=== PATIENT | male | born 1985 | race Caucasian/White ===

== ENCOUNTER 2024-01-01 03:06 | Emergency (ER) | payer MEDICAID, OTHER ==
[~2024-01-01] VITALS: Ht 157.5 cm; Wt 54.5 kg
[2024-01-01 03:44] LABS: HEMATOCRIT 40.2 % (42.0-52.0); HEMOGLOBIN 13.7 g/dl (13.5-17.5); MEAN CORPUSCULAR HEMOGLOBIN 29.3 pg (27.0-33.0); MEAN CORPUSCULAR HGB CONC 34.1 g/dl (32.0-36.5); MEAN CORPUSCULAR VOLUME 85.9 fl (80.0-96.0); PLATELET COUNT, AUTOMATED 257 10^3/uL (150-450); RED BLOOD COUNT 4.68 10^6/uL (4.30-6.10); WHITE BLOOD COUNT 5.7 10^3/uL (4.0-10.0)
[2024-01-01 04:03] LABS: BARBITURATES URINE NEGATIVE (NEGATIVE); COCAINE METABOLITE URINE NEGATIVE (NEGATIVE)
[2024-01-01 04:04] LABS: BENZODIAZEPINES URINE NEGATIVE (NEGATIVE); METHADONE URINE NEGATIVE (NEGATIVE); OPIATES URINE NEGATIVE (NEGATIVE); PHENCYCLIDINE URINE NEGATIVE (NEGATIVE)
[2024-01-01 04:05] LABS: AMPHETAMINES LEVEL URINE POSITIVE (NEGATIVE); CANNABINOIDS URINE POSITIVE (NEGATIVE); ETHYL ALCOHOL (ETHANOL) < 0.003 % (0.000-0.010)
[2024-01-01 04:07] LABS: ALBUMIN 4.4 G/DL (3.2-5.2); ALKALINE PHOSPHATASE 48 U/L (46-116); ALT/SGPT 14 U/L (7.0-40); AST/SGOT 17 U/L (<34); BILIRUBIN,DIRECT 0.2 MG/DL (<0.4); BILIRUBIN,TOTAL 0.5 MG/DL (0.3-1.2); BLOOD UREA NITROGEN 18 MG/DL (9-23); CALCIUM LEVEL 9.2 MG/DL (8.5-10.1); CARBON DIOXIDE LEVEL 26 MMOL/L (20-31); CHLORIDE LEVEL 105 MMOL/L (98-107); CREATININE FOR GFR 1.09 MG/DL (0.70-1.30); GLOMERULAR FILTRATION RATE > 60.0 (>60); GLUCOSE, FASTING 94 MG/DL (60-100); POTASSIUM SERUM 3.8 MMOL/L (3.5-5.1); SALICYLATE LEVEL < 3.0 MG/DL (<30); SODIUM LEVEL 140 MMOL/L (136-145); TOTAL PROTEIN 6.9 G/DL (5.7-8.2)
[2024-01-01 04:09] LABS: THYROID STIMULATING HORMONE 3.169 uIU/ML (0.55-4.78)
[2024-01-01 08:21] VITALS: BP 142/79; TEMP 97.4; O2SAT 96
== END 2024-01-01 08:27 | disposition home or self-care (01) ==
LOC: M ED 03:06
DX: F43.0 Acute stress reaction (principal); F20.9 Schizophrenia, unspecified; F17.290 Nicotine dependence, other tobacco product, uncomplicated

== ENCOUNTER 2024-01-30 01:17 | Emergency (ER) | payer OTHER ==
[~2024-01-30] VITALS: Ht 172.7 cm; Wt 61.6 kg
[2024-01-30 01:59] LABS: HEMATOCRIT 40.5 % (42.0-52.0); HEMOGLOBIN 14.1 g/dl (13.5-17.5); MEAN CORPUSCULAR HEMOGLOBIN 29.6 pg (27.0-33.0); MEAN CORPUSCULAR HGB CONC 34.8 g/dl (32.0-36.5); MEAN CORPUSCULAR VOLUME 85.1 fl (80.0-96.0); PLATELET COUNT, AUTOMATED 273 10^3/uL (150-450); RED BLOOD COUNT 4.76 10^6/uL (4.30-6.10); WHITE BLOOD COUNT 6.1 10^3/uL (4.0-10.0)
[2024-01-30 02:23] LABS: ETHYL ALCOHOL (ETHANOL) 0.006 % (0.000-0.010)
[2024-01-30 02:25] LABS: ALBUMIN 4.5 G/DL (3.2-5.2); ALKALINE PHOSPHATASE 55 U/L (46-116); ALT/SGPT 32 U/L (7.0-40); AST/SGOT 45 U/L (<34); BILIRUBIN,DIRECT 0.2 MG/DL (<0.4); BILIRUBIN,TOTAL 0.5 MG/DL (0.3-1.2); BLOOD UREA NITROGEN 30 MG/DL (9-23); CALCIUM LEVEL 9.3 MG/DL (8.5-10.1); CARBON DIOXIDE LEVEL 24 MMOL/L (20-31); CHLORIDE LEVEL 106 MMOL/L (98-107); CREATININE FOR GFR 1.09 MG/DL (0.70-1.30); GLOMERULAR FILTRATION RATE > 60.0 (>60); GLUCOSE, FASTING 88 MG/DL (60-100); POTASSIUM SERUM 4.4 MMOL/L (3.5-5.1); SALICYLATE LEVEL < 3.0 MG/DL (<30); SODIUM LEVEL 140 MMOL/L (136-145); TOTAL PROTEIN 7.1 G/DL (5.7-8.2)
[2024-01-30 02:27] LABS: THYROID STIMULATING HORMONE 0.705 uIU/ML (0.55-4.78)
[2024-01-30 04:32] LABS: BARBITURATES URINE NEGATIVE (NEGATIVE); BENZODIAZEPINES URINE NEGATIVE (NEGATIVE); COCAINE METABOLITE URINE NEGATIVE (NEGATIVE); METHADONE URINE NEGATIVE (NEGATIVE); OPIATES URINE NEGATIVE (NEGATIVE); PHENCYCLIDINE URINE NEGATIVE (NEGATIVE)
[2024-01-30 04:49] LABS: AMPHETAMINES LEVEL URINE POSITIVE (NEGATIVE); CANNABINOIDS URINE POSITIVE (NEGATIVE)
[2024-01-30] MEDS ORDERED: MED REC IN PROGRESS XX SCH (07:45)
[2024-01-30] MEDS ORDERED: HOME MED LIST COMPLETE! XX SCH (08:40)
[2024-01-30 10:55] VITALS: BP 106/59; TEMP 99; O2SAT 99
== END 2024-01-30 11:25 | disposition home or self-care (01) ==
LOC: M ED 01:17
DX: F43.20 Adjustment disorder, unspecified (principal); F17.200 Nicotine dependence, unspecified, uncomplicated; F31.9 Bipolar disorder, unspecified; Z11.52 Encounter for screening for COVID-19

== ENCOUNTER 2024-03-10 19:33 | Emergency (ER) | payer OTHER ==
[2024-03-10 19:41] VITALS: TEMP 97.8
[2024-03-10 20:15] VITALS: BP 131/87; O2SAT 100
[2024-03-10] MEDS ORDERED: ISOVUE-370 76% 100ML VIAL As Ordered ONE (20:24)
[2024-03-10 20:26] LABS: BASO % 0.6 % (0.0-1.0); EOS # 0.1 10^3/uL (0.0-0.5); EOS % 1.3 % (0.0-3.0); HEMATOCRIT 36.8 % (42.0-52.0); LYMPH % 28.1 % (24.0-44.0); MEAN CORPUSCULAR HEMOGLOBIN 30.3 pg (27.0-33.0); MEAN CORPUSCULAR HGB CONC 35.3 g/dl (32.0-36.5); MEAN CORPUSCULAR VOLUME 85.8 fl (80.0-96.0); MONO # 0.6 10^3/uL (0.0-0.8); NEUTROPHILS # 4.4 10^3/uL (1.5-8.5); NEUTROPHILS % 61.9 % (36.0-66.0); PLATELET COUNT, AUTOMATED 218 10^3/uL (150-450); RED BLOOD COUNT 4.29 10^6/uL (4.30-6.10); WHITE BLOOD COUNT 7.2 10^3/uL (4.0-10.0)
[2024-03-10 20:49] LABS: BLOOD UREA NITROGEN 20 MG/DL (9-23); CALCIUM LEVEL 9.1 MG/DL (8.5-10.1); CARBON DIOXIDE LEVEL 29 MMOL/L (20-31); CHLORIDE LEVEL 107 MMOL/L (98-107); CREATININE FOR GFR 0.92 MG/DL (0.70-1.30); GLOMERULAR FILTRATION RATE > 60.0 (>60); GLUCOSE, FASTING 86 MG/DL (60-100); POTASSIUM SERUM 4.3 MMOL/L (3.5-5.1); SODIUM LEVEL 141 MMOL/L (136-145)
[2024-03-10 20:50] LABS: CK-MB VALUE MASS 1.6 NG/ML (<3.6); CPK CREATINE PHOSPHOKINASE 131 U/L (46-171); MB/CK RELATIVE INDEX 1.22 (< OR =4)
[2024-03-10 21:45] LABS: INR 0.98; PARTIAL THROMBOPLASTIN TIME 24.3 SECONDS (24.8-34.2); PROTHROMBIN TIME 12.7 SECONDS (12.5-14.5)
== END 2024-03-10 21:57 | disposition left against medical advice (07) ==
LOC: EDBD 19:33 → M ED 19:33
DX: R51.9 Headache, unspecified (principal); Y04.8XXA Assault by other bodily force, initial encounter; Z53.9 Procedure and treatment not carried out, unspecified reason; F31.9 Bipolar disorder, unspecified; F17.200 Nicotine dependence, unspecified, uncomplicated
CPT/HCPCS: 70450; 71260; 72125; 72128; 72131; 73564; 73590; 73630; 74177; 80047; 80048; 82550; 82553; 84484; 85025; 85610; 85730; 93005; 93041; 94760; 99284; Q9967

== ENCOUNTER 2024-03-26 15:28 | Emergency (ER) | payer OTHER ==
[2024-03-26 16:58] LABS: BARBITURATES URINE NEGATIVE (NEGATIVE); BENZODIAZEPINES URINE NEGATIVE (NEGATIVE); METHADONE URINE NEGATIVE (NEGATIVE); OPIATES URINE NEGATIVE (NEGATIVE); PHENCYCLIDINE URINE NEGATIVE (NEGATIVE)
[2024-03-26 17:01] LABS: COCAINE METABOLITE URINE NEGATIVE (NEGATIVE)
[2024-03-26 17:03] LABS: ETHYL ALCOHOL (ETHANOL) < 0.003 % (0.000-0.010)
[2024-03-26 17:04] LABS: AMPHETAMINES LEVEL URINE POSITIVE (NEGATIVE); CANNABINOIDS URINE POSITIVE (NEGATIVE)
[2024-03-26 17:05] LABS: ALBUMIN 4.7 G/DL (3.2-5.2); ALKALINE PHOSPHATASE 53 U/L (46-116); ALT/SGPT 20 U/L (7.0-40); AST/SGOT 27 U/L (<34); BILIRUBIN,DIRECT 0.2 MG/DL (<0.4); BILIRUBIN,TOTAL 0.5 MG/DL (0.3-1.2); BLOOD UREA NITROGEN 24 MG/DL (9-23); CALCIUM LEVEL 9.4 MG/DL (8.5-10.1); CARBON DIOXIDE LEVEL 22 MMOL/L (20-31); CHLORIDE LEVEL 105 MMOL/L (98-107); CREATININE FOR GFR 1.36 MG/DL (0.70-1.30); GLOMERULAR FILTRATION RATE > 60.0 (>60); GLUCOSE, FASTING 114 MG/DL (60-100); HEMOGLOBIN 14.8 g/dl (13.5-17.5); MEAN CORPUSCULAR HEMOGLOBIN 30.1 pg (27.0-33.0); MEAN CORPUSCULAR HGB CONC 36.1 g/dl (32.0-36.5); MEAN CORPUSCULAR VOLUME 83.5 fl (80.0-96.0); PLATELET COUNT, AUTOMATED 272 10^3/uL (150-450); POTASSIUM SERUM 3.9 MMOL/L (3.5-5.1); RED BLOOD COUNT 4.91 10^6/uL (4.30-6.10); SALICYLATE LEVEL < 3.0 MG/DL (<30); SODIUM LEVEL 140 MMOL/L (136-145); TOTAL PROTEIN 7.3 G/DL (5.7-8.2); WHITE BLOOD COUNT 8.3 10^3/uL (4.0-10.0)
[2024-03-26 17:08] LABS: THYROID STIMULATING HORMONE 0.701 uIU/ML (0.55-4.78)
[2024-03-26] MEDS: LORazepam 2 MG TAB PO STA (18:09)
[2024-03-26] MEDS: IBUPROFEN 400MG TAB PO ONE (18:56)
[2024-03-26] MEDS: guaiFENesin 200 MG TAB PO ONE (20:51)
[2024-03-26] MEDS ORDERED: HOME MED LIST COMPLETE! XX SCH (21:55)
[2024-03-27 11:43] VITALS: BP 90/52; TEMP 97.9; O2SAT 92
== END 2024-03-27 12:27 | disposition home or self-care (01) ==
LOC: M ED 15:28
DX: F19.959 Other psychoactive substance use, unspecified with psychoactive substance-induced psychotic disorder, unspecified (principal); S60.511A Abrasion of right hand, initial encounter; W22.09XA Striking against other stationary object, initial encounter; Y92.9 Unspecified place or not applicable; Y93.89 Activity, other specified; Y99.9 Unspecified external cause status

== ENCOUNTER 2024-04-24 15:07 | Emergency (ER) | payer OTHER ==
[~2024-04-24] VITALS: Ht 172.7 cm; Wt 58.9 kg
[2024-04-24 15:08] VITALS: BP 131/63; TEMP 98.6; O2SAT 100
[2024-04-25] MEDS ORDERED: CEPH500C PO (16:04)
[2024-04-25] MEDS ORDERED: NAPR-837 PO (16:04)
== END 2024-04-24 17:39 | disposition left against medical advice (07) ==
LOC: M ED 15:07
DX: Z53.21 Procedure and treatment not carried out due to patient leaving prior to being seen by health care provider (principal)

== ENCOUNTER 2024-04-25 10:28 | Emergency (ER) | payer OTHER ==
[~2024-04-25] VITALS: Ht 172.7 cm; Wt 58.9 kg
[2024-04-25 13:51] LABS: BASO % 0.4 % (0.0-1.0); EOS % 0.4 % (0.0-3.0); HEMATOCRIT 36.1 % (42.0-52.0); HEMOGLOBIN 12.6 g/dl (13.5-17.5); LYMPH # 0.8 10^3/uL (1.5-5.0); LYMPH % 9.7 % (24.0-44.0); MEAN CORPUSCULAR HEMOGLOBIN 29.9 pg (27.0-33.0); MEAN CORPUSCULAR HGB CONC 34.9 g/dl (32.0-36.5); MEAN CORPUSCULAR VOLUME 85.5 fl (80.0-96.0); MONO # 0.6 10^3/uL (0.0-0.8); MONO % 6.8 % (2.0-8.0); NEUTROPHILS # 6.8 10^3/uL (1.5-8.5); NEUTROPHILS % 82.6 % (36.0-66.0); PLATELET COUNT, AUTOMATED 292 10^3/uL (150-450); RED BLOOD COUNT 4.22 10^6/uL (4.30-6.10); WHITE BLOOD COUNT 8.2 10^3/uL (4.0-10.0)
[2024-04-25 14:01] LABS: ERYTHROCYTE SEDIMENTATION RATE 32 mm/hr (0-15)
[2024-04-25 14:11] LABS: CPK CREATINE PHOSPHOKINASE 182 U/L (46-171)
[2024-04-25 14:12] LABS: ALBUMIN 3.4 G/DL (3.2-5.2); ALKALINE PHOSPHATASE 63 U/L (46-116); ALT/SGPT 30 U/L (7.0-40); AST/SGOT 42 U/L (<34); BILIRUBIN,DIRECT 0.1 MG/DL (<0.4); BILIRUBIN,TOTAL 0.4 MG/DL (0.3-1.2); BLOOD UREA NITROGEN 16 MG/DL (9-23); CALCIUM LEVEL 8.5 MG/DL (8.5-10.1); CARBON DIOXIDE LEVEL 25 MMOL/L (20-31); CHLORIDE LEVEL 104 MMOL/L (98-107); CK-MB VALUE MASS 4.8 NG/ML (<3.6); CREATININE FOR GFR 0.72 MG/DL (0.70-1.30); GLOMERULAR FILTRATION RATE > 60.0 (>60); GLUCOSE, FASTING 105 MG/DL (60-100); MB/CK RELATIVE INDEX 2.63 (< OR =4); POTASSIUM SERUM 4.2 MMOL/L (3.5-5.1); SODIUM LEVEL 138 MMOL/L (136-145)
[2024-04-25] MEDS ORDERED: ISOVUE-370 76% 100ML VIAL As Ordered ONE (14:15)
[2024-04-25] MEDS: NS 1,000 ML IV ONE (15:07)
[2024-04-25 15:48] LABS: AMPHETAMINES LEVEL URINE NEGATIVE (NEGATIVE); BARBITURATES URINE NEGATIVE (NEGATIVE); COCAINE METABOLITE URINE NEGATIVE (NEGATIVE); METHADONE URINE NEGATIVE (NEGATIVE); OPIATES URINE NEGATIVE (NEGATIVE); PHENCYCLIDINE URINE NEGATIVE (NEGATIVE)
[2024-04-25 15:49] LABS: BENZODIAZEPINES URINE NEGATIVE (NEGATIVE)
[2024-04-25] MEDS: KETOROLAC 30 MG/ML 1ML VIAL IV ONE (15:52)
[2024-04-25 15:53] LABS: CANNABINOIDS URINE POSITIVE (NEGATIVE)
[2024-04-25] MEDS ORDERED: CEPH500C PO (16:04)
[2024-04-25] MEDS ORDERED: NAPR-837 PO (16:04)
[2024-04-25 16:29] VITALS: BP 121/76; TEMP 97; O2SAT 100
== END 2024-04-25 16:24 | disposition home or self-care (01) ==
LOC: M ED 10:28 → EDBD 10:28 → M ED 16:24
DX: S22.42XA Multiple fractures of ribs, left side, initial encounter for closed fracture (principal); L02.413 Cutaneous abscess of right upper limb; X58.XXXA Exposure to other specified factors, initial encounter; Y92.9 Unspecified place or not applicable; Y93.9 Activity, unspecified; Y99.9 Unspecified external cause status; F20.9 Schizophrenia, unspecified; F31.9 Bipolar disorder, unspecified; F17.200 Nicotine dependence, unspecified, uncomplicated
CPT/HCPCS: 71046; 71275; 80048; 80076; 80307; 82550; 82553; 84484; 85025; 85379; 85652; 86140; 87040; 96361; 96374; 99284; J1885; Q9967

== ENCOUNTER 2024-07-01 19:52 | Emergency (ER) | payer MEDICAID, OTHER, SELFPAY ==
[~2024-07-01] VITALS: Ht 172.7 cm; Wt 62.1 kg
[~2024-07-01 19:52] MED LIST: CEPH500C PO; NAPR-837 PO
[2024-07-01 20:06] VITALS: TEMP 96.6
[2024-07-01] MEDS ORDERED: NALOXONE 2MG/2ML SYRINGE IV PRN (20:35)
[2024-07-01 21:15] VITALS: O2SAT 100
[2024-07-01 21:21] VITALS: BP 135/85
[2024-07-01] MEDS: NALOXONE 2MG/2ML SYRINGE IM STA (21:30)
== END 2024-07-01 21:52 | disposition home or self-care (01) ==
LOC: EDBD 19:52 → EDSEX 19:52 → M ED 19:52
DX: F11.120 Opioid abuse with intoxication, uncomplicated (principal); F20.9 Schizophrenia, unspecified; F17.200 Nicotine dependence, unspecified, uncomplicated; F12.10 Cannabis abuse, uncomplicated; Z79.899 Other long term (current) drug therapy

== ENCOUNTER 2024-08-05 16:59 | Emergency (ER) | payer MEDICAID ==
[~2024-08-05] VITALS: Ht 172.7 cm; Wt 64.0 kg
[2024-08-05 17:04] VITALS: BP 129/81; TEMP 98.5; O2SAT 100
== END 2024-08-05 18:26 | disposition left against medical advice (07) ==
LOC: EDBD 16:59 → M ED 16:59
DX: Z53.21 Procedure and treatment not carried out due to patient leaving prior to being seen by health care provider (principal)

== ENCOUNTER 2024-09-06 22:11 | Emergency (ER) | payer MEDICAID ==
[~2024-09-06] VITALS: Ht 172.7 cm; Wt 59.8 kg
[2024-09-06 23:04] LABS: BASO % 0.7 % (0.0-1.0); EOS # 0.3 10^3/uL (0.0-0.5); EOS % 4.8 % (0.0-3.0); HEMATOCRIT 39.3 % (42.0-52.0); LYMPH # 2.1 10^3/uL (1.5-5.0); LYMPH % 33.8 % (24.0-44.0); MEAN CORPUSCULAR HGB CONC 33.1 g/dl (32.0-36.5); MEAN CORPUSCULAR VOLUME 87.5 fl (80.0-96.0); MONO # 0.5 10^3/uL (0.0-0.8); MONO % 8.2 % (2.0-8.0); NEUTROPHILS # 3.2 10^3/uL (1.5-8.5); NEUTROPHILS % 52.3 % (36.0-66.0); PLATELET COUNT, AUTOMATED 251 10^3/uL (150-450); RED BLOOD COUNT 4.49 10^6/uL (4.30-6.10); WHITE BLOOD COUNT 6.1 10^3/uL (4.0-10.0)
[2024-09-06 23:17] LABS: BLOOD UREA NITROGEN 16 MG/DL (9-23); CALCIUM LEVEL 9.5 MG/DL (8.5-10.1); CARBON DIOXIDE LEVEL 30 MMOL/L (20-31); CHLORIDE LEVEL 106 MMOL/L (98-107); CREATININE FOR GFR 1.05 MG/DL (0.70-1.30); GLOMERULAR FILTRATION RATE > 60.0 (>60); GLUCOSE, FASTING 106 MG/DL (60-100); MAGNESIUM LEVEL 2.1 MG/DL (1.8-2.4); POTASSIUM SERUM 4.4 MMOL/L (3.5-5.1); SODIUM LEVEL 142 MMOL/L (136-145)
[2024-09-06] MEDS ORDERED: cefTRIAXone SOD 1 GM in DEXTROSE 5% (D5W) ADV/MINI-BAG 50 ML IV ONE (23:45)
[2024-09-07 02:23] VITALS: BP 126/88; TEMP 98.5; O2SAT 100
== END 2024-09-07 02:25 | disposition home or self-care (01) ==
LOC: EDBD 22:11 → EDUNIT# 22:11 → M ED 22:11
DX: T68.XXXA Hypothermia, initial encounter (principal); F19.10 Other psychoactive substance abuse, uncomplicated; F31.9 Bipolar disorder, unspecified; F20.9 Schizophrenia, unspecified; F17.200 Nicotine dependence, unspecified, uncomplicated; Z87.81 Personal history of (healed) traumatic fracture

== ENCOUNTER 2024-12-15 15:11 | Emergency (ER) | payer MEDICAID ==
[~2024-12-15] VITALS: Ht 172.7 cm; Wt 65.0 kg
[2024-12-15 19:24] LABS: HEMATOCRIT 38.2 % (42.0-52.0); HEMOGLOBIN 12.8 g/dl (13.5-17.5); MEAN CORPUSCULAR HEMOGLOBIN 29.2 pg (27.0-33.0); MEAN CORPUSCULAR HGB CONC 33.5 g/dl (32.0-36.5); MEAN CORPUSCULAR VOLUME 87.2 fl (80.0-96.0); PLATELET COUNT, AUTOMATED 315 10^3/uL (150-450); RED BLOOD COUNT 4.38 10^6/uL (4.30-6.10); WHITE BLOOD COUNT 5.6 10^3/uL (4.0-10.0)
[2024-12-15 19:44] LABS: ETHYL ALCOHOL (ETHANOL) < 0.003 % (0.000-0.010)
[2024-12-15 19:46] LABS: ALBUMIN 3.5 G/DL (3.2-5.2); ALKALINE PHOSPHATASE 55 U/L (40-129); ALT/SGPT 22 U/L (7.0-40); AST/SGOT 34 U/L (<34); BILIRUBIN,DIRECT < 0.1 MG/DL (<0.4); BILIRUBIN,TOTAL 0.2 MG/DL (0.3-1.2); BLOOD UREA NITROGEN 12 MG/DL (9-23); CALCIUM LEVEL 9.3 MG/DL (8.5-10.1); CARBON DIOXIDE LEVEL 30 MMOL/L (20-31); CHLORIDE LEVEL 103 MMOL/L (98-107); CREATININE FOR GFR 0.91 MG/DL (0.70-1.30); GLOMERULAR FILTRATION RATE > 60.0 (>60); GLUCOSE, FASTING 90 MG/DL (60-100); POTASSIUM SERUM 4.5 MMOL/L (3.5-5.1); SALICYLATE LEVEL < 3.0 MG/DL (<30); SODIUM LEVEL 140 MMOL/L (136-145); TOTAL PROTEIN 6.6 G/DL (5.7-8.2)
[2024-12-15 19:47] LABS: THYROID STIMULATING HORMONE 0.392 uIU/ML (0.55-4.78)
[2024-12-15 20:21] VITALS: TEMP 98.4
[2024-12-15] MEDS: NS (Normal Saline) 0.9% 1,000 ML IV ONE (21:46)
[2024-12-15] MEDS: KETOROLAC 30 MG/ML 1ML VIAL IV ONE (21:47)
[2024-12-15] MEDS: ONDANSETRON 4MG 2ML VIAL IV ONE (21:47)
[2024-12-15 23:05] VITALS: BP 128/63
[2024-12-16] VITALS: O2SAT 100
[2024-12-16 00:07] LABS: BARBITURATES URINE NEGATIVE (NEGATIVE); BENZODIAZEPINES URINE NEGATIVE (NEGATIVE); COCAINE METABOLITE URINE NEGATIVE (NEGATIVE); METHADONE URINE NEGATIVE (NEGATIVE); OPIATES URINE NEGATIVE (NEGATIVE); PHENCYCLIDINE URINE NEGATIVE (NEGATIVE)
[2024-12-16 00:10] LABS: AMPHETAMINES LEVEL URINE POSITIVE (NEGATIVE); CANNABINOIDS URINE POSITIVE (NEGATIVE)
== END 2024-12-16 00:24 | disposition home or self-care (01) ==
LOC: EDBD 15:11 → M ED 15:11
DX: F19.10 Other psychoactive substance abuse, uncomplicated (principal); F44.5 Conversion disorder with seizures or convulsions; F17.200 Nicotine dependence, unspecified, uncomplicated
CPT/HCPCS: 80048; 80076; 80143; 80307; 82077; 84443; 85027; 96361; 96374; 96375; 99284; J1885; J2405

== ENCOUNTER 2025-01-03 01:36 | Emergency (ER) | payer MEDICAID ==
[~2025-01-03] VITALS: Ht 172.7 cm; Wt 59.1 kg
[2025-01-03] MEDS: NEOSPORIN OINT 0.9 GM PKT TOP ONE (02:05)
[2025-01-03] MEDS: KETOROLAC 60MG 2ML VIAL IM ONE (02:23)
[2025-01-03] MEDS: PERCOCET 5MG/325MG TAB PO ONE (02:23)
[2025-01-03 07:28] VITALS: BP 127/76; TEMP 97.7; O2SAT 99
== END 2025-01-03 07:46 | disposition short-term general hospital (02) ==
LOC: EDBD 01:36 → M ED 01:36
DX: T23.241A Burn of second degree of multiple right fingers (nail), including thumb, initial encounter (principal)
CPT/HCPCS: 96372; 99285; J1885

== ENCOUNTER 2025-01-25 08:42 | Emergency (ER) | payer MEDICAID ==
[~2025-01-25] VITALS: Ht 172.7 cm; Wt 68.4 kg
[2025-01-25 09:19] LABS: HEMATOCRIT 37.3 % (42.0-52.0); HEMOGLOBIN 12.8 g/dl (13.5-17.5); MEAN CORPUSCULAR HEMOGLOBIN 29.4 pg (27.0-33.0); MEAN CORPUSCULAR HGB CONC 34.3 g/dl (32.0-36.5); MEAN CORPUSCULAR VOLUME 85.6 fl (80.0-96.0); PLATELET COUNT, AUTOMATED 260 10^3/uL (150-450); RED BLOOD COUNT 4.36 10^6/uL (4.30-6.10); WHITE BLOOD COUNT 6.8 10^3/uL (4.0-10.0)
[2025-01-25] MEDS: MULTIVITAMINS/MINERALS THERAP 1 TAB PO SCH (09:28)
[2025-01-25] MEDS: FOLIC ACID 1MG TAB PO SCH (09:28)
[2025-01-25] MEDS: THIAMINE 100 MG TAB PO SCH (09:28)
[2025-01-25 09:55] LABS: AMPHETAMINES LEVEL URINE NEGATIVE (NEGATIVE); BARBITURATES URINE NEGATIVE (NEGATIVE); BENZODIAZEPINES URINE NEGATIVE (NEGATIVE); COCAINE METABOLITE URINE NEGATIVE (NEGATIVE); METHADONE URINE NEGATIVE (NEGATIVE); OPIATES URINE NEGATIVE (NEGATIVE); PHENCYCLIDINE URINE NEGATIVE (NEGATIVE)
[2025-01-25 09:57] LABS: CANNABINOIDS URINE POSITIVE (NEGATIVE); ETHYL ALCOHOL (ETHANOL) < 0.003 % (0.000-0.010)
[2025-01-25 09:59] LABS: ALBUMIN 3.8 G/DL (3.2-5.2); ALKALINE PHOSPHATASE 48 U/L (40-129); ALT/SGPT 50 U/L (7.0-40); AST/SGOT 47 U/L (<34); BILIRUBIN,DIRECT < 0.1 MG/DL (<0.4); BILIRUBIN,TOTAL 0.4 MG/DL (0.3-1.2); BLOOD UREA NITROGEN 15 MG/DL (9-23); CARBON DIOXIDE LEVEL 30 MMOL/L (20-31); CHLORIDE LEVEL 101 MMOL/L (98-107); CREATININE FOR GFR 0.94 MG/DL (0.70-1.30); GLOMERULAR FILTRATION RATE > 90.0 (>60); GLUCOSE, FASTING 83 MG/DL (60-100); POTASSIUM SERUM 4.5 MMOL/L (3.5-5.1); SALICYLATE LEVEL < 3.0 MG/DL (<30); SODIUM LEVEL 139 MMOL/L (136-145); TOTAL PROTEIN 6.6 G/DL (5.7-8.2)
[2025-01-25 10:01] LABS: THYROID STIMULATING HORMONE 1.802 uIU/ML (0.55-4.78)
[2025-01-25] MEDS: LORazepam 2 MG TAB PO PRN (14:02)
[2025-01-25 14:47] VITALS: BP 118/63; TEMP 97.9; O2SAT 97
== END 2025-01-25 14:52 | disposition short-term general hospital (02) ==
LOC: M ED 08:42 → EDBD 08:42 → M ED 14:52
DX: F11.13 Opioid abuse with withdrawal (principal); Z59.00 Homelessness unspecified

== ENCOUNTER 2025-02-08 15:18 | Emergency (ER) | payer MEDICAID ==
[~2025-02-08] VITALS: Ht 172.7 cm; Wt 64.2 kg
[2025-02-08 15:52] LABS: BASO # 0.1 10^3/uL (0.0-0.2); BASO % 0.6 % (0.0-1.0); EOS # 0.2 10^3/uL (0.0-0.5); EOS % 3.1 % (0.0-3.0); HEMATOCRIT 38.4 % (42.0-52.0); HEMOGLOBIN 13.1 g/dl (13.5-17.5); LYMPH # 2.2 10^3/uL (1.5-5.0); LYMPH % 28.3 % (24.0-44.0); MEAN CORPUSCULAR HGB CONC 34.1 g/dl (32.0-36.5); MEAN CORPUSCULAR VOLUME 85.1 fl (80.0-96.0); MONO # 0.6 10^3/uL (0.0-0.8); MONO % 8.3 % (2.0-8.0); NEUTROPHILS # 4.6 10^3/uL (1.5-8.5); NEUTROPHILS % 59.6 % (36.0-66.0); PLATELET COUNT, AUTOMATED 268 10^3/uL (150-450); RED BLOOD COUNT 4.51 10^6/uL (4.30-6.10); WHITE BLOOD COUNT 7.7 10^3/uL (4.0-10.0)
[2025-02-08 16:10] LABS: ETHYL ALCOHOL (ETHANOL) < 0.003 % (0.000-0.010)
[2025-02-08 16:12] LABS: ALBUMIN 3.9 G/DL (3.2-5.2); ALKALINE PHOSPHATASE 46 U/L (40-129); ALT/SGPT 17 U/L (7.0-40); AST/SGOT 17 U/L (<34); BILIRUBIN,DIRECT < 0.1 MG/DL (<0.4); BILIRUBIN,TOTAL 0.3 MG/DL (0.3-1.2); BLOOD UREA NITROGEN 19 MG/DL (9-23); CALCIUM LEVEL 9.3 MG/DL (8.5-10.1); CARBON DIOXIDE LEVEL 26 MMOL/L (20-31); CHLORIDE LEVEL 105 MMOL/L (98-107); CREATININE FOR GFR 0.75 MG/DL (0.70-1.30); GLOMERULAR FILTRATION RATE > 90.0 (>60); GLUCOSE, FASTING 108 MG/DL (60-100); POTASSIUM SERUM 3.7 MMOL/L (3.5-5.1); SODIUM LEVEL 141 MMOL/L (136-145); TOTAL PROTEIN 6.7 G/DL (5.7-8.2)
[2025-02-08 17:14] LABS: AMPHETAMINES LEVEL URINE NEGATIVE (NEGATIVE); BARBITURATES URINE NEGATIVE (NEGATIVE); BENZODIAZEPINES URINE NEGATIVE (NEGATIVE); COCAINE METABOLITE URINE NEGATIVE (NEGATIVE); METHADONE URINE NEGATIVE (NEGATIVE); OPIATES URINE NEGATIVE (NEGATIVE); PHENCYCLIDINE URINE NEGATIVE (NEGATIVE)
[2025-02-08 17:20] LABS: CANNABINOIDS URINE POSITIVE (NEGATIVE)
[2025-02-08] MEDS ORDERED: CARB20TA PO (20:06)
[2025-02-08 20:15] VITALS: BP 108/66; TEMP 98.6; O2SAT 100
[2025-02-08] MEDS: carBAMazepine 200MG TABLET PO ONE (20:22)
== END 2025-02-08 20:29 | disposition home or self-care (01) ==
LOC: M ED 15:18 → EDBD 15:18 → M ED 20:29
DX: R56.9 Unspecified convulsions (principal)

== ENCOUNTER 2025-02-16 18:23 | Emergency (ER) | payer MEDICAID ==
[~2025-02-16] VITALS: Ht 172.7 cm; Wt 69.6 kg
[~2025-02-16 18:23] MED LIST changes: +CARB20TA PO
[2025-02-16 18:28] VITALS: BP 123/71; TEMP 98.6; O2SAT 98
[2025-02-17] MEDS ORDERED: KETO-204 PO (14:18)
== END 2025-02-16 21:17 | disposition left against medical advice (07) ==
LOC: EDBD 18:23 → M ED 18:23
DX: Z53.21 Procedure and treatment not carried out due to patient leaving prior to being seen by health care provider (principal)

== ENCOUNTER 2025-02-17 09:46 | Emergency (ER) | payer MEDICAID ==
[~2025-02-17] VITALS: Ht 172.7 cm; Wt 68.0 kg
[2025-02-17] MEDS: KETOROLAC 60MG 2ML VIAL IM ONE (11:45)
[2025-02-17] MEDS ORDERED: KETO-204 PO (14:18)
[2025-02-17 14:23] VITALS: BP 125/58; TEMP 97.6; O2SAT 98
== END 2025-02-17 14:43 | disposition home or self-care (01) ==
LOC: M ED 09:46
DX: S52.024A Nondisplaced fracture of olecranon process without intraarticular extension of right ulna, initial encounter for closed fracture (principal); W19.XXXA Unspecified fall, initial encounter; Y92.410 Unspecified street and highway as the place of occurrence of the external cause; Y93.55 Activity, bike riding; Y99.9 Unspecified external cause status; E11.9 Type 2 diabetes mellitus without complications; R56.9 Unspecified convulsions; F20.9 Schizophrenia, unspecified; J45.909 Unspecified asthma, uncomplicated; F17.200 Nicotine dependence, unspecified, uncomplicated; F12.10 Cannabis abuse, uncomplicated; Z79.899 Other long term (current) drug therapy
CPT/HCPCS: 73090; 73200; 96372; 99283; J1885

== ENCOUNTER 2025-04-26 11:44 | Inpatient (IN) | payer MEDICAID, SELFPAY ==
[~2025-04-26] VITALS: Ht 172.7 cm; Wt 60.3 kg
[~2025-04-26 11:44] MED LIST changes: +KETO-204 PO
[2025-04-26 15:38] LABS: BASO # 0.0 10^3/uL (0.0-0.2); BASO % 0.6 % (0.0-1.0); EOS # 0.3 10^3/uL (0.0-0.5); EOS % 4.8 % (0.0-3.0); LYMPH # 1.6 10^3/uL (1.5-5.0); LYMPH % 30.6 % (24.0-44.0); MONO # 0.5 10^3/uL (0.0-0.8); MONO % 10.4 % (2.0-8.0); NEUTROPHILS # 2.8 10^3/uL (1.5-8.5); NEUTROPHILS % 53.4 % (36.0-66.0); PLATELET COUNT, AUTOMATED 246 10^3/uL (150-450)
[2025-04-26 16:03] LABS: ALT/SGPT 22 U/L (7.0-40); AST/SGOT 44 U/L (<34); CALCIUM LEVEL 8.5 MG/DL (8.5-10.1); CARBON DIOXIDE LEVEL 28 MMOL/L (20-31); CHLORIDE LEVEL 107 MMOL/L (98-107); CREATININE FOR GFR 0.78 MG/DL (0.70-1.30); GLOMERULAR FILTRATION RATE > 90.0 (>60); POTASSIUM SERUM 4.6 MMOL/L (3.5-5.1); SODIUM LEVEL 144 MMOL/L (136-145)
[2025-04-26] MEDS: LR 1,000 ML IV ONE (17:08)
[2025-04-26] MEDS ORDERED: HOME MED LIST COMPLETE! XX SCH (17:10)
[2025-04-26 17:16] LABS: T UPTAKE 45.2 % (22.5-37.0); THYROXINE (T4) 7.2 UG/DL (4.5-10.9)
[2025-04-26 17:17] LABS: PROLACTIN 5.13 NG/ML (2.1-17.7)
[2025-04-26 18:20] LABS: ESTIMATED AVERAGE GLUCOSE 105.0 MG/DL (60-110)
[2025-04-26 19:45] LABS: HIV 1&2 SCREEN NEGATIVE (NEGATIVE)
[2025-04-26 19:51] LABS: HEPATITIS C VIRUS ABY INDEX < 0.02 INDEX (<0.8)
[2025-04-26 20:24] LABS: KETONE, URINE AUTO RFX NEGATIVE (NEGATIVE); LEUKOCYTE ESTERASE UR AUTO RFX NEGATIVE (NEGATIVE); NITRITE, URINE AUTO RFX NEGATIVE (NEGATIVE); RBC, URINE AUTO RFX 0 /HPF (0-3); SQUAM EPITHELIAL CELL UR AURFX 0 /HPF (0-6); WBC, URINE AUTO RFX 0 /HPF (0-3)
[2025-04-26 20:45] LABS: BARBITURATES URINE NEGATIVE (NEGATIVE); BENZODIAZEPINES URINE NEGATIVE (NEGATIVE); COCAINE METABOLITE URINE NEGATIVE (NEGATIVE); METHADONE URINE NEGATIVE (NEGATIVE); OPIATES URINE NEGATIVE (NEGATIVE); PHENCYCLIDINE URINE NEGATIVE (NEGATIVE)
[2025-04-26 20:47] LABS: AMPHETAMINES LEVEL URINE POSITIVE (NEGATIVE); CANNABINOIDS URINE POSITIVE (NEGATIVE)
[2025-04-26] MEDS: KETOROLAC 30 MG/ML 1 ML VIAL IV ONE (21:18)
[2025-04-27] MEDS: NS (Normal Saline) 0.9% 1,000 ML IV SCH (08:11)
[2025-04-27] MEDS: KETOROLAC 30 MG/ML 1 ML VIAL IV ONE (08:12)
[2025-04-27 08:29] VITALS: BP 102/64; TEMP 97.1; O2SAT 99
[2025-04-27 08:48] LABS: PLATELET COUNT, AUTOMATED 225 10^3/uL (150-450)
[2025-04-27 09:12] LABS: CALCIUM LEVEL 8.7 MG/DL (8.5-10.1); CARBON DIOXIDE LEVEL 28 MMOL/L (20-31); CHLORIDE LEVEL 107 MMOL/L (98-107); CREATININE FOR GFR 0.88 MG/DL (0.70-1.30); GLOMERULAR FILTRATION RATE > 90.0 (>60); POTASSIUM SERUM 4.6 MMOL/L (3.5-5.1); SODIUM LEVEL 144 MMOL/L (136-145)
[2025-04-27 12:12] VITALS: BP 109/67; TEMP 97.7; O2SAT 100
[2025-04-27] MEDS: NS (Normal Saline) 0.9% 1,000 ML IV ONE (13:52)
[2025-04-27] MEDS ORDERED: KETOROLAC 30 MG/ML 1 ML VIAL IV PRN (14:00)
[2025-04-27 14:50] VITALS: BP 110/62; TEMP 98.1; O2SAT 98
[2025-04-27] MEDS ORDERED: traMADol 50 MG TAB PO ONE (15:30)
[2025-04-27] MEDS: ACETAMINOPHEN 500 MG TAB PO ONE (15:48)
[2025-04-27 19:59] VITALS: BP 109/62; TEMP 98.4; O2SAT 99
[2025-04-27] MEDS ORDERED: ACETAMINOPHEN 325 MG TAB PO PRN (20:00)
[2025-04-27] MEDS: PERCOCET 5MG/325MG TAB PO PRN (23:45)
[2025-04-28 03:55] VITALS: BP 118/74; TEMP 97.9; O2SAT 100
[2025-04-28 06:39] LABS: PLATELET COUNT, AUTOMATED 239 10^3/uL (150-450)
[2025-04-28 07:02] LABS: CALCIUM LEVEL 8.5 MG/DL (8.5-10.1); CARBON DIOXIDE LEVEL 28 MMOL/L (20-31); CHLORIDE LEVEL 104 MMOL/L (98-107); CREATININE FOR GFR 0.90 MG/DL (0.70-1.30); GLOMERULAR FILTRATION RATE > 90.0 (>60); POTASSIUM SERUM 4.5 MMOL/L (3.5-5.1); SODIUM LEVEL 142 MMOL/L (136-145)
[2025-04-28 12:00] VITALS: BP 111/70; TEMP 98.2; O2SAT 98
[2025-04-28 20:16] VITALS: BP 112/73; TEMP 98.1; O2SAT 99
[2025-04-29 04:31] VITALS: BP 107/74; TEMP 97.5; O2SAT 98
[2025-04-29 05:43] LABS: PLATELET COUNT, AUTOMATED 227 10^3/uL (150-450)
[2025-04-29 06:06] LABS: CALCIUM LEVEL 8.5 MG/DL (8.5-10.1); CARBON DIOXIDE LEVEL 31 MMOL/L (20-31); CHLORIDE LEVEL 103 MMOL/L (98-107); CREATININE FOR GFR 0.92 MG/DL (0.70-1.30); GLOMERULAR FILTRATION RATE > 90.0 (>60); POTASSIUM SERUM 4.3 MMOL/L (3.5-5.1); SODIUM LEVEL 142 MMOL/L (136-145)
[2025-04-29 12:00] VITALS: BP 106/72; TEMP 98.1; O2SAT 98
[2025-04-29 20:00] VITALS: BP 115/74; TEMP 98.1; O2SAT 95
[2025-04-30 04:21] VITALS: BP 112/72; TEMP 98; O2SAT 96
[2025-04-30 05:51] LABS: PLATELET COUNT, AUTOMATED 229 10^3/uL (150-450)
[2025-04-30 06:12] LABS: CALCIUM LEVEL 8.7 MG/DL (8.5-10.1); CARBON DIOXIDE LEVEL 31 MMOL/L (20-31); CHLORIDE LEVEL 103 MMOL/L (98-107); CREATININE FOR GFR 0.92 MG/DL (0.70-1.30); GLOMERULAR FILTRATION RATE > 90.0 (>60); POTASSIUM SERUM 4.9 MMOL/L (3.5-5.1); SODIUM LEVEL 143 MMOL/L (136-145)
[2025-04-30 12:18] VITALS: BP 117/75; TEMP 97.5; O2SAT 98
[2025-04-30] MEDS ORDERED: PILL CUTTER 1 EACH XX PRN (14:00)
[2025-04-30] MEDS: ACETAMINOPHEN 500 MG TAB PO SCH (15:50)
[2025-04-30] MEDS: KETOROLAC TROMETHAMINE 10 MG TAB PO SCH (15:51)
[2025-04-30 20:12] LABS: LYME TOTAL ANTIBODY CIA <= 0.90 Index (<=0.90)
[2025-04-30] MEDS: SENNOSIDES/DOCUSATE SODIUM 8.6 MG/50MG TAB PO SCH (21:00)
[2025-04-30 21:31] VITALS: BP 120/68; TEMP 97.9; O2SAT 97
[2025-05-01 05:57] VITALS: BP 95/67; TEMP 98.1; O2SAT 99
[2025-05-01 06:48] LABS: PLATELET COUNT, AUTOMATED 222 10^3/uL (150-450)
[2025-05-01] MEDS ORDERED: MIDAZOLAM INJ 2 MG/2 ML VIAL As Ordered ONE (07:08)
[2025-05-01] MEDS ORDERED: ACETAMINOPHEN 1000MG/100ML IV BAG As Ordered ONE (07:09)
[2025-05-01] MEDS ORDERED: LIDOCAINE 2% 100 MG/5 ML SDV (FOR ANES.) As Ordered ONE (07:11)
[2025-05-01] MEDS ORDERED: ONDANSETRON 4MG 2ML VIAL As Ordered ONE (07:12)
[2025-05-01] MEDS ORDERED: dexAMETHasone 4 MG/ML 1 ML VIAL As Ordered ONE (07:12)
[2025-05-01 07:13] LABS: CALCIUM LEVEL 8.4 MG/DL (8.5-10.1); CARBON DIOXIDE LEVEL 29 MMOL/L (20-31); CHLORIDE LEVEL 104 MMOL/L (98-107); CREATININE FOR GFR 0.81 MG/DL (0.70-1.30); GLOMERULAR FILTRATION RATE > 90.0 (>60); POTASSIUM SERUM 4.3 MMOL/L (3.5-5.1); SODIUM LEVEL 142 MMOL/L (136-145)
[2025-05-01 07:30] VITALS: BP 107/83; TEMP 97.9; O2SAT 99
[2025-05-01] MEDS ORDERED: dexmedeTOMIDine (4 MCG/ML) 200 MCG/50 ML BTL As Ordered ONE (08:30)
[2025-05-01] MEDS ORDERED: PHENYLephrine 500MCG 5ML (100MCG/ML) SYRINGE As Ordered ONE (08:38)
[2025-05-01] MEDS ORDERED: ATROPINE SULF 0.4 MG/ML 1 ML VIAL As Ordered ONE (09:10)
[2025-05-01] MEDS ORDERED: VASOPRESSIN INJ 20UNITS/ML 1ML VIAL As Ordered ONE (09:14)
[2025-05-01] MEDS ORDERED: HYDROmorphone HCL 2 MG/ML 1 ML VIAL As Ordered ONE (09:28)
[2025-05-01] MEDS ORDERED: HYDROMORPHONE HCL 0.5 MG/0.5 ML SYRINGE IV PRN (10:30)
[2025-05-01] MEDS: ONDANSETRON 4MG 2ML VIAL IV PRN (11:02)
[2025-05-01] MEDS: LR 1,000 ML IV SCH (11:45)
[2025-05-01 11:47] VITALS: BP 106/69; TEMP 98.2; O2SAT 97
[2025-05-01 12:28] VITALS: BP 108/70; TEMP 98.1; O2SAT 99
[2025-05-01 12:50] VITALS: BP 137/71; TEMP 97.9; O2SAT 98
[2025-05-01] MEDS ORDERED: CARB20TA PO (13:42)
[2025-05-01] MEDS ORDERED: OXYC-517 PO (13:42)
[2025-05-01] MEDS ORDERED: IBUP-1022 PO (13:42)
[2025-05-01] MEDS ORDERED: ACET-683 PO (13:42)
[2025-05-01 13:50] VITALS: BP 128/72; TEMP 98.6; O2SAT 98
[2025-05-01] MEDS ORDERED: ceFAZolin SODIUM 2 GM in DEXTROSE 5% (D5W) ADV/MINI-BAG 50 ML IV SCH (16:00)
== END 2025-05-01 14:20 | disposition home or self-care (01) | DRG 315 ==
LOC: M ED 11:44 → M ED INP 16:36 → M PCU 04-27 00:49 → M MSPAV 04-27 14:46
PROVIDERS: ADMIT General Practice; ATTEND Internal Medicine Nephrology
PROC: 0PBL0ZZ Excision of Left Ulna, Open Approach (ICD-10-PCS; 2025-05-01)
PROC: 0PSL04Z Reposition Left Ulna with Internal Fixation Device, Open Approach (ICD-10-PCS; principal; 2025-05-01 07:30)
DX: S52.02 Fracture of olecranon process without intraarticular extension of ulna (principal); F15.10 Other stimulant abuse, uncomplicated; F20.9 Schizophrenia, unspecified; E11.9 Type 2 diabetes mellitus without complications; D64.9 Anemia, unspecified; F31.9 Bipolar disorder, unspecified; G40.909 Epilepsy, unspecified, not intractable, without status epilepticus; J45.909 Unspecified asthma, uncomplicated; F17.200 Nicotine dependence, unspecified, uncomplicated; F10.10 Alcohol abuse, uncomplicated; F12.10 Cannabis abuse, uncomplicated; R74.01 Elevation of levels of liver transaminase levels; Z91.148 Patient's other noncompliance with medication regimen for other reason

== ENCOUNTER 2025-05-02 00:30 | Emergency (ER) | payer MEDICAID, SELFPAY ==
[~2025-05-02] VITALS: Ht 172.7 cm; Wt 67.7 kg
[~2025-05-02 00:30] MED LIST changes: +ACET-683 PO; +IBUP600T42 PO; +OXYC-517 PO
[2025-05-02 00:35] VITALS: BP 140/79; TEMP 98.4; O2SAT 99
== END 2025-05-02 03:35 | disposition home or self-care (01) ==
LOC: M ED 00:30
DX: Z46.89 Encounter for fitting and adjustment of other specified devices (principal)

== ENCOUNTER 2025-05-02 23:24 | Emergency (ER) | payer SELFPAY ==
[~2025-05-02] VITALS: Ht 172.7 cm; Wt 65.9 kg
[~2025-05-02 23:24] MED LIST changes: +IBUP-1022 PO; -IBUP600T42 PO
[2025-05-02 23:29] VITALS: BP 126/81; TEMP 98.3; O2SAT 100
== END 2025-05-03 01:53 | disposition left against medical advice (07) ==
LOC: M ED 23:24
DX: Z53.21 Procedure and treatment not carried out due to patient leaving prior to being seen by health care provider (principal)

== ENCOUNTER → 2025-05-12 | Outpatient (CLI) | payer SELFPAY | LOC: M SOG 06:46 | PROVIDERS: ATTEND Physician Assistant | DX: S52.02 Fracture of olecranon process without intraarticular extension of ulna (principal); Z53.9 Procedure and treatment not carried out, unspecified reason ==

== ENCOUNTER 2025-05-21 15:39 | Emergency (ER) | payer MEDICAID, SELFPAY ==
[~2025-05-21] VITALS: Ht 172.7 cm; Wt 65.6 kg
[~2025-05-21 15:39] MED LIST changes: -IBUP-1022 PO; +IBUP600T42 PO
[2025-05-21 17:46] VITALS: TEMP 98
[2025-05-21] MEDS: KETOROLAC 30 MG/ML 1 ML VIAL IM ONE (20:12)
[2025-05-21] MEDS: PERCOCET 5MG/325MG TAB PO ONE (21:32)
[2025-05-21] MEDS ORDERED: KETO-204 PO (22:10)
[2025-05-21 22:30] VITALS: BP 116/72; O2SAT 98
== END 2025-05-21 22:31 | disposition home or self-care (01) ==
LOC: M ED 15:39 → EDBD 15:39 → M ED 22:31
DX: S22.31XA Fracture of one rib, right side, initial encounter for closed fracture (principal); Y04.8XXA Assault by other bodily force, initial encounter; Y92.9 Unspecified place or not applicable; Y93.9 Activity, unspecified; Y99.9 Unspecified external cause status; F19.10 Other psychoactive substance abuse, uncomplicated; Z79.899 Other long term (current) drug therapy
CPT/HCPCS: 70450; 71101; 72125; 96372; 99284; J1885

== ENCOUNTER 2025-05-24 00:15 | Inpatient (IN) | payer MEDICAID, SELFPAY ==
[~2025-05-24] VITALS: Ht 172.7 cm; Wt 63.7 kg
[2025-05-24] MEDS: NICOTINE 14 MG/24 HR TRANSDERMAL TD SCH (09:00)
[2025-05-24] MEDS: IBUPROFEN 600 MG TAB PO ONE (10:25)
[2025-05-24] MEDS ORDERED: OLANZapine 5 MG TAB PO PRN (11:25)
[2025-05-24] MEDS ORDERED: MAALOX 30 ML SUSP *UDC PO PRN (11:25)
[2025-05-24] MEDS ORDERED: HALOPERIDOL 5 MG TAB PO PRN (11:25)
[2025-05-24] MEDS ORDERED: MOM 30 ML SUSPENSION UDC PO PRN (11:25)
[2025-05-24] MEDS ORDERED: LORazepam 1 MG TAB PO PRN (11:25)
[2025-05-24] MEDS ORDERED: traZODone 50 MG TAB PO PRN (11:25)
[2025-05-24] MEDS ORDERED: ACETAMINOPHEN 325 MG TAB PO PRN (11:25)
[2025-05-24] MEDS: IBUPROFEN 400 MG TAB PO PRN (14:45)
[2025-05-24 15:05] VITALS: BP 117/63; TEMP 97.5; O2SAT 98
[2025-05-24] MEDS ORDERED: CARB10TACH PO (17:03)
[2025-05-24] MEDS ORDERED: OXYC-517 PO (17:05)
[2025-05-24] MEDS ORDERED: HOME MED LIST COMPLETE! XX SCH (17:10)
[2025-05-25 06:38] VITALS: TEMP 97.7; O2SAT 100
[2025-05-25] MEDS: PERCOCET 5MG/325MG TAB PO PRN (09:10)
[2025-05-25 16:18] VITALS: BP 117/67; TEMP 98.3; O2SAT 99
[2025-05-25] MEDS: QUEtiapine FUMARATE 50MG TAB PO SCH (20:11)
[2025-05-26 06:17] VITALS: BP 115/65; TEMP 97; O2SAT 99
[2025-05-26 15:45] VITALS: BP 114/74; TEMP 97.9; O2SAT 100
[2025-05-27 06:32] VITALS: BP 138/63; TEMP 98; O2SAT 99
[2025-05-27 14:55] VITALS: BP 133/81; TEMP 98.3; O2SAT 100
[2025-05-28 06:39] VITALS: BP 123/72; TEMP 97; O2SAT 96
[2025-05-29] MEDS: PERCOCET 5MG/325MG TAB PO PRN (08:41)
[2025-05-29] MEDS ORDERED: QUET100T2 PO (08:42)
[2025-05-29] MEDS ORDERED: CARB10TACH PO (08:42)
== END 2025-05-29 10:30 | disposition home or self-care (01) | DRG 753 ==
LOC: M ED 00:15 → M ED INP 11:21 → M PSY 12:58
PROVIDERS: ADMIT Internal Medicine; ATTEND Psychiatry & Neurology Psychiatry
DX: F39 Unspecified mood [affective] disorder (principal); R45.850 Homicidal ideations; F15.10 Other stimulant abuse, uncomplicated; G40.909 Epilepsy, unspecified, not intractable, without status epilepticus; F60.2 Antisocial personality disorder; F10.10 Alcohol abuse, uncomplicated; F12.10 Cannabis abuse, uncomplicated; F17.210 Nicotine dependence, cigarettes, uncomplicated; S52.022D Displaced fracture of olecranon process without intraarticular extension of left ulna, subsequent encounter for closed fracture with routine healing; S22.31XA Fracture of one rib, right side, initial encounter for closed fracture; Z79.899 Other long term (current) drug therapy; Y07.9 Unspecified perpetrator of maltreatment and neglect; Y04.0XXA Assault by unarmed brawl or fight, initial encounter; Y93.9 Activity, unspecified; Y92.9 Unspecified place or not applicable; Y99.8 Other external cause status

== ENCOUNTER 2025-06-06 21:30 | Inpatient (IN) | payer MEDICAID ==
[~2025-06-06] VITALS: Ht 172.7 cm; Wt 63.5 kg
[~2025-06-06 21:30] MED LIST changes: +CARB10TACH PO; +QUET100T2 PO
[2025-06-06] MEDS ORDERED: MOM 30 ML SUSPENSION UDC PO PRN (23:15)
[2025-06-06] MEDS ORDERED: ACETAMINOPHEN 325 MG TAB PO PRN (23:15)
[2025-06-06] MEDS ORDERED: MAALOX 30 ML SUSP *UDC PO PRN (23:15)
[2025-06-07] MEDS ORDERED: QUET100T2 PO (00:57)
[2025-06-07 01:00] VITALS: BP 111/82; TEMP 96.6; O2SAT 98
[2025-06-07] MEDS ORDERED: HOME MED LIST COMPLETE! XX SCH (01:00)
[2025-06-07 06:32] VITALS: BP 127/62; TEMP 98.3; O2SAT 100
[2025-06-07] MEDS: carBAMazepine 100 MG *1/2* TABLET PO SCH (08:54)
[2025-06-07] MEDS: IBUPROFEN 400 MG TAB PO PRN (10:00)
[2025-06-07 12:45] VITALS: BP 122/65; TEMP 97.6; O2SAT 98
[2025-06-07] MEDS: ONDANSETRON 4MG TAB PO PRN (13:32)
[2025-06-07 15:12] VITALS: BP 115/65; TEMP 98.2; O2SAT 100
[2025-06-07] MEDS: QUEtiapine FUMARATE 50MG TAB PO SCH (20:39)
[2025-06-07] MEDS: traZODone 50 MG TAB PO PRN (20:39)
[2025-06-08 06:30] VITALS: BP 96/56; TEMP 98.3; O2SAT 100
[2025-06-08] MEDS: SERTRALINE HCL 50 MG TAB PO SCH (09:00)
[2025-06-08] MEDS: OLANZapine ORAL DISINTEGRATING TAB 5MG PO PRN (09:42)
[2025-06-08] MEDS: ESCITALOPRAM OXALATE 10 MG TABLET PO SCH (09:42)
[2025-06-09 06:20] VITALS: BP 154/68; TEMP 98; O2SAT 100
[2025-06-09 17:36] VITALS: BP 134/63; TEMP 98.1
[2025-06-10] MEDS ORDERED: TRAZ-252 PO (09:35)
[2025-06-10] MEDS ORDERED: QUET50TA4 PO (09:35)
[2025-06-10] MEDS ORDERED: LEXA1TAB PO (09:35)
== END 2025-06-10 11:09 | disposition home or self-care (01) | DRG 751 ==
LOC: M ED 21:30 → M ED INP 23:11 → M PSY 06-07 00:57
PROVIDERS: ADMIT General Practice; ATTEND General Practice
DX: F33.1 Major depressive disorder, recurrent, moderate (principal); F41.9 Anxiety disorder, unspecified; R45.851 Suicidal ideations; F17.200 Nicotine dependence, unspecified, uncomplicated; G40.909 Epilepsy, unspecified, not intractable, without status epilepticus; Z91.51 Personal history of suicidal behavior; Z63.8 Other specified problems related to primary support group; Z62.810 Personal history of physical and sexual abuse in childhood; Z56.0 Unemployment, unspecified; Z79.899 Other long term (current) drug therapy; S52.022D Displaced fracture of olecranon process without intraarticular extension of left ulna, subsequent encounter for closed fracture with routine healing

== ENCOUNTER 2025-06-22 15:49 | Emergency (ER) | payer MEDICAID ==
[~2025-06-22] VITALS: Ht 172.7 cm; Wt 64.7 kg
[~2025-06-22 15:49] MED LIST changes: +LEXA1TAB PO; +QUET50TA4 PO; +TRAZ-252 PO
[2025-06-22 16:04] VITALS: BP 119/67; TEMP 98.9; O2SAT 98
== END 2025-06-22 20:11 | disposition left against medical advice (07) ==
LOC: M ED 15:49
DX: Z53.21 Procedure and treatment not carried out due to patient leaving prior to being seen by health care provider (principal)

== ENCOUNTER 2025-06-25 16:43 | Inpatient (IN) | payer MEDICAID ==
[~2025-06-25] VITALS: Ht 172.7 cm; Wt 61.4 kg
[2025-06-25 19:00] LABS: PLATELET COUNT, AUTOMATED 222 10^3/uL (150-450)
[2025-06-25 19:25] LABS: ALT/SGPT 19 U/L (7.0-40); AST/SGOT 26 U/L (<34); CALCIUM LEVEL 8.4 MG/DL (8.5-10.1); CARBON DIOXIDE LEVEL 27 MMOL/L (20-31); CHLORIDE LEVEL 106 MMOL/L (98-107); CREATININE FOR GFR 1.10 MG/DL (0.70-1.30); GLOMERULAR FILTRATION RATE 88.1 (>60); POTASSIUM SERUM 4.1 MMOL/L (3.5-5.1); SALICYLATE LEVEL < 3.0 MG/DL (<30); SODIUM LEVEL 139 MMOL/L (136-145)
[2025-06-25 19:28] LABS: ETHYL ALCOHOL (ETHANOL) < 0.003 % (0.000-0.010)
[2025-06-25] MEDS: guaiFENesin SYRUP 200 MG/10 ML UDC PO ONE (19:37)
[2025-06-25] MEDS ORDERED: LEXA1TAB PO (21:10)
[2025-06-25] MEDS ORDERED: QUET50TA4 PO (21:10)
[2025-06-25] MEDS ORDERED: TRAZ-252 PO (21:10)
[2025-06-25] MEDS ORDERED: HOME MED LIST COMPLETE! XX SCH (21:15)
[2025-06-25 21:39] LABS: BARBITURATES URINE NEGATIVE (NEGATIVE); COCAINE METABOLITE URINE NEGATIVE (NEGATIVE); METHADONE URINE NEGATIVE (NEGATIVE); OPIATES URINE NEGATIVE (NEGATIVE)
[2025-06-25 21:40] LABS: BENZODIAZEPINES URINE NEGATIVE (NEGATIVE); PHENCYCLIDINE URINE NEGATIVE (NEGATIVE)
[2025-06-25 21:42] LABS: AMPHETAMINES LEVEL URINE POSITIVE (NEGATIVE); CANNABINOIDS URINE POSITIVE (NEGATIVE)
[2025-06-26] MEDS: guaiFENesin SYRUP 200 MG/10 ML UDC PO ONE (02:57)
[2025-06-26] MEDS ORDERED: traZODone 50 MG TAB PO PRN (14:20)
[2025-06-26] MEDS ORDERED: MAALOX 30 ML SUSP *UDC PO PRN (14:20)
[2025-06-26] MEDS ORDERED: MOM 30 ML SUSPENSION UDC PO PRN (14:20)
[2025-06-26] MEDS ORDERED: ACETAMINOPHEN 325 MG TAB PO PRN (14:20)
[2025-06-26] MEDS ORDERED: IBUPROFEN 400 MG TAB PO PRN (14:20)
[2025-06-26] MEDS: HALOPERIDOL 5 MG TAB PO PRN (16:52)
[2025-06-28 06:31] VITALS: BP 96/64; TEMP 98.2; O2SAT 100
[2025-06-28] MEDS ORDERED: OLANZapine ORAL DISINTEGRATING TAB 5MG PO PRN (09:45)
[2025-06-28] MEDS: HALOPERIDOL LACTATE 5 MG/ML VIAL IM STA (15:46)
[2025-06-28] MEDS: diphenhydrAMINE 50 MG/ML VIAL IM STA (15:46)
[2025-06-28 16:05] VITALS: BP 124/75; TEMP 97.9; O2SAT 98
[2025-06-28 16:12] VITALS: BP 135/97; TEMP 98; O2SAT 100
[2025-06-28 16:22] VITALS: BP 103/64; TEMP 98.9; O2SAT 98
[2025-06-28 17:22] VITALS: BP 99/60; TEMP 97; O2SAT 98
[2025-06-28 17:55] VITALS: BP 114/56; TEMP 98.1; O2SAT 98
== END 2025-06-29 11:20 | disposition home or self-care (01) | DRG 753 ==
LOC: M ED 16:43 → M ED INP 06-26 14:20 → M PSY 06-26 15:23
PROVIDERS: ADMIT General Practice; ATTEND General Practice
DX: F39 Unspecified mood [affective] disorder (principal); R45.850 Homicidal ideations; R45.851 Suicidal ideations; G40.909 Epilepsy, unspecified, not intractable, without status epilepticus; E11.9 Type 2 diabetes mellitus without complications; B34.8 Other viral infections of unspecified site; J45.909 Unspecified asthma, uncomplicated; Z79.899 Other long term (current) drug therapy; Z56.0 Unemployment, unspecified; F15.90 Other stimulant use, unspecified, uncomplicated

== ENCOUNTER 2025-08-16 16:21 | Inpatient (IN) | payer MEDICAID, OTHER ==
[~2025-08-16] VITALS: Ht 172.5 cm; Wt 62.6 kg
[2025-08-16 17:05] LABS: PLATELET COUNT, AUTOMATED 307 10^3/uL (150-450)
[2025-08-16 17:40] LABS: BARBITURATES URINE NEGATIVE (NEGATIVE); BENZODIAZEPINES URINE NEGATIVE (NEGATIVE); COCAINE METABOLITE URINE NEGATIVE (NEGATIVE); METHADONE URINE NEGATIVE (NEGATIVE); OPIATES URINE NEGATIVE (NEGATIVE); PHENCYCLIDINE URINE NEGATIVE (NEGATIVE)
[2025-08-16 17:42] LABS: AMPHETAMINES LEVEL URINE POSITIVE (NEGATIVE); CANNABINOIDS URINE POSITIVE (NEGATIVE); ETHYL ALCOHOL (ETHANOL) < 0.003 % (0.000-0.010)
[2025-08-16 17:44] LABS: ALT/SGPT 25 U/L (7.0-40); AST/SGOT 41 U/L (<34); CALCIUM LEVEL 9.0 MG/DL (8.5-10.1); CARBON DIOXIDE LEVEL 31 MMOL/L (20-31); CHLORIDE LEVEL 102 MMOL/L (98-107); CREATININE FOR GFR 0.73 MG/DL (0.70-1.30); GLOMERULAR FILTRATION RATE > 90.0 (>60); POTASSIUM SERUM 4.1 MMOL/L (3.5-5.1); SALICYLATE LEVEL < 3.0 MG/DL (<30); SODIUM LEVEL 139 MMOL/L (136-145)
[2025-08-16] MEDS ORDERED: IBUPROFEN 400 MG TAB PO PRN (21:15)
[2025-08-16] MEDS ORDERED: MOM 30 ML SUSPENSION UDC PO PRN (21:15)
[2025-08-16] MEDS ORDERED: HALOPERIDOL 5 MG TAB PO PRN (21:15)
[2025-08-16] MEDS ORDERED: LORazepam 1 MG TAB PO PRN (21:15)
[2025-08-16] MEDS ORDERED: MAALOX 30 ML SUSP *UDC PO PRN (21:15)
[2025-08-16] MEDS ORDERED: traZODone 50 MG TAB PO PRN (21:15)
[2025-08-16] MEDS ORDERED: ACETAMINOPHEN 325 MG TAB PO PRN (21:15)
[2025-08-16 23:05] VITALS: BP 113/59; TEMP 96.5; O2SAT 95
[2025-08-17] MEDS ORDERED: HOME MED LIST COMPLETE! XX SCH (09:25)
[2025-08-17 16:06] VITALS: BP 126/89; TEMP 97.8; O2SAT 99
[2025-08-17] MEDS: OLANZapine 5 MG TAB PO SCH (21:00)
[2025-08-18 06:25] VITALS: BP 120/75; TEMP 97.4; O2SAT 100
[2025-08-18] MEDS: buPROPion **XL** 150 MG TABLET PO SCH (11:38)
[2025-08-18 14:42] VITALS: BP 111/68; TEMP 97.1; O2SAT 97
[2025-08-18] MEDS: OLANZapine ORAL DISINTEGRATING TAB 5MG PO SCH (20:46)
[2025-08-19] MEDS: OLANZapine ORAL DISINTEGRATING TAB 5MG PO SCH (10:25)
[2025-08-19] MEDS: AUGMENTIN 875 MG TAB PO SCH (20:43)
[2025-08-20 06:22] VITALS: BP 125/77; TEMP 97.4; O2SAT 98
[2025-08-20] MEDS ORDERED: OLAN5ZYD PO (08:46)
[2025-08-20] MEDS ORDERED: BUPR150T12 PO (08:46)
[2025-08-20] MEDS: SODIUM CHLORIDE NASAL 0.65% SPRAY BTL (OCEAN) SCH (09:00)
[2025-08-20] MEDS: FLUTICASONE PROPIONATE 0.05% NASAL SPRAY 16 GM NARES SCH (09:00)
== END 2025-08-20 09:38 | disposition home or self-care (01) | DRG 751 ==
LOC: M ED 16:21 → M ED INP 21:15 → M PSY 22:10
PROVIDERS: ADMIT Psychiatry & Neurology Neurology; ATTEND Psychiatry & Neurology Neurology
DX: F33.1 Major depressive disorder, recurrent, moderate (principal); E11.9 Type 2 diabetes mellitus without complications; G40.909 Epilepsy, unspecified, not intractable, without status epilepticus; F15.90 Other stimulant use, unspecified, uncomplicated; F12.90 Cannabis use, unspecified, uncomplicated; F17.200 Nicotine dependence, unspecified, uncomplicated; F60.2 Antisocial personality disorder; F41.9 Anxiety disorder, unspecified; J45.909 Unspecified asthma, uncomplicated; M25.522 Pain in left elbow; Z91.51 Personal history of suicidal behavior; Z56.0 Unemployment, unspecified

== ENCOUNTER 2025-08-28 15:53 | Emergency (ER) | payer OTHER ==
[~2025-08-28] VITALS: Ht 172.7 cm; Wt 63.8 kg
[~2025-08-28 15:53] MED LIST changes: +BUPR150T12 PO; +OLAN5ZYD PO
[2025-08-28 15:56] VITALS: BP 120/76; TEMP 97.8
[2025-08-28 17:59] LABS: BASO # 0.0 10^3/uL (0.0-0.2); BASO % 0.3 % (0.0-1.0); EOS # 0.2 10^3/uL (0.0-0.5); EOS % 2.1 % (0.0-3.0); LYMPH # 1.7 10^3/uL (1.5-5.0); LYMPH % 18.9 % (24.0-44.0); MONO # 0.8 10^3/uL (0.0-0.8); MONO % 8.8 % (2.0-8.0); NEUTROPHILS # 6.4 10^3/uL (1.5-8.5); NEUTROPHILS % 69.6 % (36.0-66.0); PLATELET COUNT, AUTOMATED 278 10^3/uL (150-450)
[2025-08-28 18:24] LABS: ALT/SGPT 27.0 U/L (7.0-40); AST/SGOT 45.0 U/L (<34)
[2025-08-28 19:03] LABS: C REACTIVE PROTEIN QUANTITATIV 12.72 MG/DL (<1.0)
[2025-08-28] MEDS: LIDOCAINE W/EPINEPHrine 1% 20 ML VIAL SC ONE (19:20)
[2025-08-28] MEDS: ONDANSETRON 4MG/2ML VIAL IV ONE (19:45)
[2025-08-28] MEDS: MORPHINE 4 MG/ML 1 ML VIAL IV ONE (19:45)
[2025-08-28] MEDS: DALBAVANCIN 1,500 MG in D5W 250 ML IV ONE (20:38)
[2025-08-28 20:50] VITALS: O2SAT 98
== END 2025-08-28 21:20 | disposition home or self-care (01) ==
LOC: M ED 15:53
DX: L02.413 Cutaneous abscess of right upper limb (principal); L03.113 Cellulitis of right upper limb; J45.909 Unspecified asthma, uncomplicated; R56.9 Unspecified convulsions; R01.1 Cardiac murmur, unspecified; F12.10 Cannabis abuse, uncomplicated; F15.10 Other stimulant abuse, uncomplicated; F17.200 Nicotine dependence, unspecified, uncomplicated; Z79.899 Other long term (current) drug therapy
CPT/HCPCS: 10160; 76882; 80076; 83605; 84145; 85025; 85652; 86140; 87070; 87077; 87186; 87205; 87641; 93971; 96365; 96375; 99283; J0875; J2405

== ENCOUNTER 2025-09-13 22:21 | Emergency (ER) | payer OTHER ==
[~2025-09-13] VITALS: Ht 172.7 cm; Wt 66.1 kg
[2025-09-13 23:07] LABS: PLATELET COUNT, AUTOMATED 317 10^3/uL (150-450)
[2025-09-13 23:34] LABS: ETHYL ALCOHOL (ETHANOL) < 0.003 % (0.000-0.010)
[2025-09-13 23:36] LABS: ALT/SGPT 28 U/L (7.0-40); AST/SGOT 49 U/L (<34); CALCIUM LEVEL 9.0 MG/DL (8.5-10.1); CARBON DIOXIDE LEVEL 29 MMOL/L (20-31); CHLORIDE LEVEL 104 MMOL/L (98-107); CREATININE FOR GFR 0.85 MG/DL (0.70-1.30); GLOMERULAR FILTRATION RATE > 90.0 (>60); POTASSIUM SERUM 4.2 MMOL/L (3.5-5.1); SALICYLATE LEVEL < 3.0 MG/DL (<30); SODIUM LEVEL 141 MMOL/L (136-145)
[2025-09-14 00:11] LABS: BARBITURATES URINE NEGATIVE (NEGATIVE); BENZODIAZEPINES URINE NEGATIVE (NEGATIVE); COCAINE METABOLITE URINE NEGATIVE (NEGATIVE); METHADONE URINE NEGATIVE (NEGATIVE); OPIATES URINE NEGATIVE (NEGATIVE); PHENCYCLIDINE URINE NEGATIVE (NEGATIVE)
[2025-09-14 00:14] LABS: AMPHETAMINES LEVEL URINE POSITIVE (NEGATIVE); CANNABINOIDS URINE POSITIVE (NEGATIVE)
[2025-09-14] MEDS ORDERED: HOME MED LIST COMPLETE! XX SCH (10:15)
[2025-09-14 14:34] VITALS: BP 121/69; TEMP 97.7; O2SAT 99
== END 2025-09-14 14:54 | disposition home or self-care (01) ==
LOC: M ED 22:21
DX: F60.2 Antisocial personality disorder (principal); Z76.5 Malingerer [conscious simulation]; F17.200 Nicotine dependence, unspecified, uncomplicated; F19.10 Other psychoactive substance abuse, uncomplicated; F15.10 Other stimulant abuse, uncomplicated; F12.10 Cannabis abuse, uncomplicated; F33.9 Major depressive disorder, recurrent, unspecified; F41.9 Anxiety disorder, unspecified; Z91.199 Patient's noncompliance with other medical treatment and regimen due to unspecified reason